=== PATIENT | male | born 1960 | race Caucasian/White ===

== ENCOUNTER → 2016-11-02 | Outpatient (CLI) | payer OTHER ==
--- NOTE | 2016-11-02 09:07 | US ---
Ultrasound of the Abdomen Limited History: Elevated liver function tests, K76.89. Findings: Gallbladder: No shadowing calculi, wall thickening, or pericholecystic fluid. Common bile duct is 2 m m in diameter which is normal. Liver: Diffusely increased in echogenicity consistent with hepatic steatosis with a 3 x 1 x 1 cm jannet on of decreased echogenicity adjacent to the gallbladder fossa which may represent focal fatty sparin g and measures 17 cm in length. Renal: Right kidney measures 11 x 5 x 5 cm without hydronephrosis. Inferior to the right kidney, ther e are two simple cysts adjacent to each other with total measurement of 1.9 x 1.2 cm. Pancreas: Homogeneous without peripancreatic fluid. Aorta: Visualized upper abdominal aorta demonstrates no aneurysm. Impression: 1. No cholelithiasis or biliary ductal dilation. 2. Hepatomegaly with hepatic steatosis which limits evaluation for focal hepatic lesions. Hypoechoic 3 cm lesion near the gallbladder fossa which may represent focal fatty sparing but is nonspecific. Re commend CT abdomen or MRI abdomen with contrast enhancement for further evaluation.
== END ==
LOC: BMCIMAGING 07:23
PROVIDERS: ATTEND Internal Medicine
DX: R16.0 Hepatomegaly, not elsewhere classified (principal); K76.0 Fatty (change of) liver, not elsewhere classified; K87 Disorders of gallbladder, biliary tract and pancreas in diseases classified elsewhere

== ENCOUNTER → 2017-06-28 | Outpatient (CLI) | payer OTHER | LOC: BMCIMAGING 07:15 | PROVIDERS: ATTEND Nurse Practitioner Adult Health | DX: M25.562 Pain in left knee (principal) ==